=== PATIENT | male | born 1975 | race Caucasian/White ===

== ENCOUNTER 2020-12-16 12:01 | Inpatient (IN) | payer OTHER ==
[~2020-12-16] VITALS: Ht 175.3 cm; Wt 63.5 kg
[2020-12-16 12:08] VITALS: BP 117/72
[2020-12-16 13:11] LABS: ABSOLUTE NEUTROPHILS 16.6 thou/uL (1.4-8.2); BASOPHILS 0.2 % (0.0-2.0); EOSINOPHILS 0.2 % (0.0-3.0); HEMATOCRIT 46.3 % (42.0-52.0); HEMOGLOBIN 16.3 gm/dL (14.0-18.0); MCH 37.4 pg (26.0-34.0); MCHC 35.2 g/dL (28.0-37.0); MCV 106.2 fL (80.0-100.0); MONOCYTES 5.4 % (1.0-8.0); PLATELET COUNT 138 thou/uL (150-400); POLYS 87.2 % (36.0-66.0); RBC 4.36 mil/uL (4.50-6.00); RDW 13.4 % (10.5-14.5); WBC 19.1 thou/uL (4.0-11.0)
[2020-12-16 13:24] LABS: CALCIUM 9.4 mg/dL (8.5-10.1); CREATININE 1.3 mg/dL (0.7-1.3); POTASSIUM 3.9 mmol/L (3.5-5.1)
[2020-12-16 13:35] LABS: TOTAL BILIRUBIN 0.5 mg/dL (0.2-1.0); TOTAL PROTEIN 7.6 g/dL (6.4-8.2)
[2020-12-16 13:56] LABS: URINE BLOOD TRACE (Negative); URINE CLARITY SL CLOUDY; URINE COLOR YELLOW; URINE GLUCOSE-RANDOM* NEGATIVE (Negative); URINE KETONES NEGATIVE (Negative); URINE LEUKOCYTES-REFLEX NEGATIVE (Negative); URINE NITRITE-REFLEX NEGATIVE (Negative); URINE PROTEIN (DIPSTICK) 2+ (Negative); URINE SPECIFIC GRAVITY >= 1.030 (1.005-1.035)
[2020-12-16 14:02] LABS: ICTOTEST (BILI CONFIRMATORY) Negative (Negative); URINE BILIRUBIN NEGATIVE (Negative)
[2020-12-16 14:09] LABS: HYALINE CASTS 4-10 Moderate /LPF (None Seen)
[2020-12-16 14:10] LABS: BACTERIA-REFLEX 1-9 Few /HPF (None Seen); CRYSTALS None Seen /LPF (None Seen); SQUAMOUS None Seen /LPF (0-3); URINE RBC None Seen /HPF (NONE SEEN); URINE WBC-REFLEX 0-5 Rare /HPF (0-5)
[2020-12-16 19:16] VITALS: BP 117/59
[2020-12-16 19:51] VITALS: BP 108/73
[2020-12-16 22:41] LABS: MAGNESIUM 1.7 mg/dL (1.8-2.4); PHOSPHORUS 2.5 mg/dL (2.6-4.7)
[2020-12-16 23:06] LABS: FOLIC ACID 13.6 ng/mL (8.6-58.9)
[2020-12-17 02:13] LABS: AMP/METHAMP Negative (Negative); BARBITURATES Negative (Negative); BENZODIAZEPINES Negative (Negative); COCAINE Negative (Negative); METHADONE Negative (Negative); OPIATES Negative (Negative); PCP Negative (Negative)
--- NOTE | 2020-12-17 03:40 | NUR ---
PT ADMITTED FROM ER TO ROOM 200, STOOL AND URINE SENT TO LAB PLACED IN ISOLATION FOR CDIFF WHILE LABS PENDING, VSS HR ST LOW 100'S, NO C/O PAIN, FLUIDS INFUSING, WILL CON'T TO MONITOR PER PPOC.
[2020-12-17 04:45] LABS: ABSOLUTE NEUTROPHILS 9.7 thou/uL (1.4-8.2); BASOPHILS 0.3 % (0.0-2.0); EOSINOPHILS 0.2 % (0.0-3.0); HEMATOCRIT 41.6 % (42.0-52.0); HEMOGLOBIN 14.4 gm/dL (14.0-18.0); LYMPHOCYTES 9.6 % (24.0-44.0); MCH 37.2 pg (26.0-34.0); MCHC 34.7 g/dL (28.0-37.0); MCV 107.3 fL (80.0-100.0); MONOCYTES 6.2 % (1.0-8.0); PLATELET COUNT 124 thou/uL (150-400); POLYS 83.7 % (36.0-66.0); RBC 3.87 mil/uL (4.50-6.00); RDW 13.2 % (10.5-14.5); WBC 11.6 thou/uL (4.0-11.0)
[2020-12-17 05:00] VITALS: BP 112/70
[2020-12-17 05:14] LABS: CALCIUM 7.9 mg/dL (8.5-10.1); CREATININE 0.9 mg/dL (0.7-1.3); MAGNESIUM 1.8 mg/dL (1.8-2.4); POTASSIUM 4.1 mmol/L (3.5-5.1)
[2020-12-17 07:10] VITALS: BP 113/71
--- NOTE | 2020-12-17 11:08 | NUR ---
ASSESSMENT COMPLETED W/ PT AT BEDSIDE, PT IS IN AN ISOLATED ROOM ON THIS DAY. PT A&OX4 PT LIVES W/ PARTNER GIAN IN 2 LVL HOME W/ 8 ENTRY STEPS AND ONE FULL FLIGHT OF STAIRS INSIDE. PT IS INDEPENDENT W/ ADL'S - COOKS/DRIVES AND WORK FT AT [employer] PT DOES NOT HAVE HH/SNF/REHAB/HOSPICE/DIALYSIS/LTAC HX PT RECEIVED COVID VACCINE - MODERNA / (09/26 & 10/24) FAMILY WILL PROVIDE TRANSPORTATION SW EDUCATED PT ON DPOA - PT DECLINED AT THIS TIME D/C PLAN: HOME WHEN MEDICALLY STABLE
[2020-12-17 11:20] VITALS: BP 109/68
[2020-12-17 15:20] VITALS: BP 109/66
--- NOTE | 2020-12-17 19:55 | NUR ---
Patient got his Biktarvy around 7pm, the night nurse got the medication bottle from the patient, claiming that she would deal with it.
[2020-12-17 20:00] VITALS: BP 111/68
[2020-12-18] VITALS: BP 118/76
--- NOTE | 2020-12-18 01:26 | NUR ---
PT IS ALERT AND ORIENTED X4. ,LCTA. PT HAS A CALLL LIGHT WITHIIN REACH IF NEEDS ASSSTITANCE. TYLNOL GIVEN FOR PAIN PT RESTING AFTER TYLNOL GIVWN WATCHING TV THIS AFTERNOON. TAKES HER OXYGEN OFF NURSE PUTS IT BACK ON NOW. WILL CONTINUE TO MONTOR AND ASSESS PER NUTSING
[2020-12-18 04:18] LABS: HEMATOCRIT 40.5 % (42.0-52.0); MCH 36.9 pg (26.0-34.0); MCHC 34.7 g/dL (28.0-37.0); MCV 106.3 fL (80.0-100.0); RBC 3.81 mil/uL (4.50-6.00); RDW 13.2 % (10.5-14.5); WBC 9.2 thou/uL (4.0-11.0)
[2020-12-18 04:45] VITALS: BP 108/71
[2020-12-18 08:10] VITALS: BP 110/73
[2020-12-18 11:02] VITALS: BP 100/61
--- NOTE | 2020-12-18 11:49 | HC ---
[facility] [place] [address] CONSULTATION Name: CARRILLO TYLER Room #: 200-I ADM IN M.R.#: [id number] Admission: 12/16/20 Attend Phys: Saida Dowell MD Discharge: Date of : 77 Report #: [id number] THIS REPORT FOR: cc: FAM - Family physician unknown FAM - Family physician unknown Adarsh Oneal MD ~ DOC #: [id number] Adarsh Oneal MD DATE OF SERVICE: 12/17/2020 INFECTIOUS DISEASE CONSULTATION ATTENDING PHYSICIAN: Dr. Dowell. REASON FOR CONSULTATION: Community-acquired pneumonia, the patient with known human immunodeficiency virus with antecedent diarrheal illness. HISTORY OF PRESENT ILLNESS: Chart was reviewed. The patient was examined. This is a 45-year-old with known HIV, although he is noted to be compliant, although he has not seen his physician in over a year due to the COVID, prior to that had undetectable viral load with CD count in 700s who had onset of diarrheal illness roughly 3-4 weeks ago. He was not having significant abdomen related pain. He noted 4-5 stools generally in the morning, resolved, and had repeat following day. Over the course of last few days, had developed more systemic illness with fevers, chills, anorexia, poor p.o. intake. Denies significant pulmonary-related complaints. He was evaluated in the Emergency Room, was found to have an elevated white count of 19.1, MCV of 106 consistent with taking his meds. Rapid Strep was negative. However, culture and followup did show moderate beta-hemolytic strep, not group A. Blood cultures were sterile thus far. Initial electrolytes; sodium 129, potassium 3.9, chloride 95, bicarbonate 23, anion gap of 11, BUN and creatinine 11 and 1.3. LFTs unremarkable, borderline elevated alkaline phosphatase 128, albumin 3.0, estimated GFR of 60. Coronavirus testing was negative. Influenza negative. Lactic acid 0.7. CT of the abdomen and pelvis was otherwise unremarkable with the exception of the left lower lobe infiltrate, suspected pneumonitis. Wise test was negative. Urinalysis showed 0-5 white cells. Enteric bacterial panel was otherwise unremarkable. TSH of 1.940. Drug screen was negative. Tentative diagnosis of pneumonitis, he was empirically started on therapy with ceftriaxone and azithromycin, the former was discontinued, added Levaquin and metronidazole. ALLERGIES: LISTED TO PENICILLIN AND ASPIRIN. CURRENT MEDICATIONS: Include loperamide, nicotine, famotidine, vitamins, thiamine, ceftriaxone, benzonatate, metronidazole, flumazenil, p.r.n. analgesics, anxiolytics, Levaquin. [address] [address] CONSULTATION Name: CARRILLO TYLER Room #: 200-I ADM IN M.R.#: [id number] Admission: 12/16/20 Attend Phys: Saida Dowell MD Discharge: Date of : 77 Report #: [id number] PAST MEDICAL HISTORY: Known HIV, hypertension, previous history of syphilis. PAST SURGICAL HISTORY: Appendectomy. SOCIAL HISTORY: Smokes cigarettes daily, [id number] history. Regular ethanol use. No illicit drug use. FAMILY HISTORY: Noncontributory. REVIEW OF SYSTEMS: Otherwise, unremarkable. Denies any significant pulmonary related complaints, may have mild weight gain. PHYSICAL EXAMINATION: GENERAL: He is alert, cooperative, appropriate. He is lucid, mild to moderate distress. VITAL SIGNS: Temperature 99.6, temperature overnight 100.9 max, pulse 101, respirations 18, blood pressure 113/71, saturation 94%. SKIN: Warm, dry, no rashes. HEENT: Normocephalic. Extraocular muscles intact. NECK: Supple. LUNGS: Scattered left basilar crackles. HEART: Regular. I do not appreciate any murmur. ABDOMEN: Soft, nontender, nondistended. EXTREMITIES: No cyanosis. GENITOURINARY AND RECTAL: Deferred. LABORATORY DATA: As described above. Most recent electrolytes; sodium 131, potassium 4.1, chloride 99, bicarbonate is 22, anion gap of 10, BUN and creatinine 10 and 0.9, glucose of 98. CBC: White count 11.6, H and H 14.4 and 41.6, platelets of 124. ASSESSMENT AND PLAN: Febrile illness. The patient with human immunodeficiency virus likely has left basilar pneumonitis. We will continue empiric therapy ____ Strep pneumoniae urinary antigen that ____ able to produce a sputum at this point. He is not overtly toxic. We will continue to monitor expectantly. O and P are pending as well. He does have a history of swimming could be at risk for cryptosporidium. We will repeat a CD4 count, has been over a year since he has had that checked, continue Biktarvy as prescribed. We will add incentive spirometry. Increase activity as allowed. Optimize nutritional status. MD ESTUARDO Tam/KEILY/JOSSELYN [facility] [address] [place] [address] CONSULTATION Name: CARRILLO TYLER Room #: 200-I ADM IN M.R.#: [id number] Admission: 12/16/20 Attend Phys: Saida Dowell MD Discharge: Date of : 77 Report #: [id number] <ELECTRONICALLY SIGNED> By: Adarsh Oneal MD 12/18/20 1149 [id number] Adarsh Oneal MD /nt
[2020-12-18 14:07] LABS: CD3 % 65.3 % (57.5-86.2); CD4 % 33.6 % (30.8-58.5); CD8 % 32.2 % (12.0-35.5)
[2020-12-18 14:07] LABS: CD3 % 61.6 % (57.5-86.2); CD4 % 32.1 % (30.8-58.5); CD4:CD8 1.08 (0.92-3.72); CD8 % 29.8 % (12.0-35.5)
[2020-12-18 15:29] VITALS: BP 112/72
[2020-12-18 17:07] LABS: CD3 ABSOLUTE 588 /uL (622-2402); CD4 ABSOLUTE 302 /uL (359-1519); CD8 ABSOLUTE 290 /uL (109-897)
--- NOTE | 2020-12-18 17:12 | NUR ---
ASSESSMENT CHARTED, MEDS PER LOLIS MENDEZ DIET AND FLUIDS. UP AD BRITTNEY IN ROOM. IV FLUIDS ORDERED - PT SHOWERED THIS SHIFT. FLAGYL D/C'D. NO CO'S OF PAIN OR NASUEA. GIVEN TESSLON PERLE FOR COUGH WITH GOOD RELIEF PT STATES. PT WITH NO CO'S AT THE PRESENT TIME. URIINE TO LAB ORDERED.
[2020-12-18 19:30] VITALS: BP 112/67
--- NOTE | 2020-12-19 02:12 | NUR ---
ASSUMED PT CARE AT 1900, ALERT AND ORIENTED, DENIES PAIN OR SOB, ASSESSMENTS CHARTED, ANBULATES WITHOUT ASSISTANCE, MEDS GIVEN PER MAR, VSS, NO NEEDS AT THIS TIME, CONTINUE ON ABX THERAPY, WILL CONTINUE TO MONITOR AND FOLLOW POC
[2020-12-19 03:06] LABS: SYPHILIS AB Reactive (Non Reactive)
[2020-12-19 04:03] VITALS: BP 133/59
[2020-12-19 07:14] VITALS: BP 116/78
[2020-12-19 11:01] VITALS: BP 101/61
[2020-12-19] MEDS ORDERED: LEVOFLOXACIN750 MG PO (11:08)
[2020-12-19] MEDS ORDERED: BENZONATATE100 MG PO (11:08)
[2020-12-19] MEDS ORDERED: LOPERAMIDE 2 MG2 M1 PO (11:08)
[2020-12-19 13:10] VITALS: BP 101/61
--- NOTE | 2020-12-19 19:39 | NUR ---
ASSESSMENT CHARTED - MEDS PER LOLIS - VANESSA DIET AND FLUIDS. UP AD BRITTNEY IN ROOM. NO CO'S OF PAIAN OR NAUSEA. PT HOME THIS AFTERNOON - INSTRUCTION RE HOME MEDS/ CARE AND FOLLOW UP GIVEN TO THE PATIENT STATED UNDERSTANDING OF INSTRUCTION GIVEN. LEFT UNIT AMBULATORY - HOME VIA PVT VEHICLE ACCOMAPNIED BY FRIEND. NO CO'S AT TIME OF D/C.
[2020-12-20 09:08] LABS: CD4:CD8 1.04 (0.92-3.72)
== END 2020-12-19 13:59 | disposition home or self-care (01) | DRG 871 ==
LOC: ER 12:01 → 2N 15:19 → EROBS 15:19 → 2N 19:16
PROVIDERS: Hospitalist; Physician Assistant; Specialist; ADMIT Internal Medicine; ATTEND Internal Medicine
DX: A41.9 Sepsis, unspecified organism (principal); J18.9 Pneumonia, unspecified organism; A48.1 Legionnaires' disease; E87.1 Hypo-osmolality and hyponatremia; Z21 Asymptomatic human immunodeficiency virus [HIV] infection status; I10 Essential (primary) hypertension; F17.210 Nicotine dependence, cigarettes, uncomplicated; E86.0 Dehydration; D69.6 Thrombocytopenia, unspecified; K52.9 Noninfective gastroenteritis and colitis, unspecified; Z20.822 Contact with and (suspected) exposure to COVID-19; Z88.6 Allergy status to analgesic agent; Z88.0 Allergy status to penicillin; Z90.49 Acquired absence of other specified parts of digestive tract; Z82.49 Family history of ischemic heart disease and other diseases of the circulatory system; Z79.899 Other long term (current) drug therapy
CPT/HCPCS: 10081